=== PATIENT | female | born 1980 | race Caucasian/White ===

== ENCOUNTER 2019-09-13 19:23 | Emergency (ER) | payer MEDICAID, SELFPAY ==
[2019-09-13 19:53] VITALS: BP 154/98; PULSE 98; RESP 17; TEMP 36.7; O2SAT 100; BMI 27.4
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
--- NOTE | 2019-09-13 20:07 | ECG_ITS ---
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 Measurements Intervals [place] Rate: 81 P: 42 HI: 146 QRS: 1 QRSD: 98 T: -4 QT: 345 QTc: 401 Interpretive Statements SINUS RHYTHM Compared to ECG 01/06/2019 23:34:30 No significant changes Electronically Signed On 09-13-2019 20:34:58 CDT by Itzel Mccormick M.D. [id number]
[2019-09-13 20:21] VITALS: BP 121/96; BP 137/94; BP 149/93; PULSE 80; PULSE 93; PULSE 95
[2019-09-13 20:25] LABS: Basophils # 0.1 10^3/uL (0.0-0.1); Eosinophils # 0.1 10^3/uL (0.0-0.8); Eosinophils % 1.6 %; Lymphocytes % 28.7 %; Mean Corpuscular HGB Conc 26.7 g/dL (30.0-36.0); Mean Corpuscular Hemoglobin 19.3 pg (28.0-34.0); Mean Corpuscular Volume 72.3 fL (81-99); Monocytes # 0.4 10^3/uL (0.2-0.9); Monocytes % 5.4 %; Neutrophils # 4.41 10^3/uL (1.8-7.7); Neutrophils % 63.2 %; Nucleated Red Blood Cells % 0 %; Platelet Count 301 10^3/cmm (130-400); Red Blood Count 4.15 10^6/uL (4.1-5.3); Red Cell Distribution Width 18.6 % (12.1-15.1)
--- NOTE | 2019-09-13 20:39 | ED_ITS ---
HPI - General Adult General: Chief complaint: General Medical Stated complaint: doesnt feel good Time Seen by Provider: 09/13/19 19:59 Source: patient Mode of arrival: ambulatory Limitations: no limitations History of Present Illness: HPI narrative: Lizbeth is a 39-year-old female who comes in complaining of fatigue. The patient states that she feels as though she is becoming anemic again. She has an anemia of unknown etiology that causes her to feel this way periodically. She states she has had work-up but the anemia cause cannot be determined. She has been on iron but she states she was taken off it as she was told that she is not truly iron deficient. She has had EGD and colonoscopies but denies any loss of blood in her stool and these tests have been negative. The patient states her last transfusion was just before . Today though she is felt lightheaded, dizzy and had 2 near syncopal episodes. The patient states that she feels tired and fatigued but otherwise has no complaints. She denies fever, chills, chest pain or other issues. Associated symptoms: Reports dyspnea and malaise; Deny chest pain, confusion, diaphoresis, headache(s), nausea, rash, palpitations, syncope or vomiting Review of Systems Const: Reports: fatigue and malaise; Denies: fever(s), chills, body aches or diaphoresis Eyes: Denies: change in vision, blurry vision, blind spots, photophobia, eye discharge or eye redness ENMT: Denies: throat pain, odynophagia, hoarseness, swelling of lips/tongue, oral sores, ear or mastoid pain, ear discharge, change in hearing or nasal discharge Card: Reports: pre-syncope; Denies: chest pain, palpitations, irregular heart rhythm, edema, lightheadedness, syncope, dyspnea on exertion or orthopnea Resp: Reports: dyspnea; Denies: productive cough, non-productive cough, wheezing, hemoptysis or chest congestion GI: Denies: abdominal pain, nausea, vomiting, hematemesis, coffee ground emesis, heartburn, diarrhea, constipation, GI cramping, hematochezia or melena : Denies: flank pain, dysuria, urinary frequency, urinary urgency or hematuria Musc: Denies: neck pain, back pain, extremity pain, extremity swelling, joint pain, joint swelling, joint redness, joint warmth or joint stiffness Skin/Breast: Denies: rash, pruritus, erythema, skin tenderness or jaundice Neuro: Denies: headache(s), numbness in extremities, weakness in extremities, sensory changes, lack of coordination, difficulty walking, dizziness, vertigo, confusion, Slurred speech present or seizure-like activity Bebeto/Lymph: Denies: easy bruising, easy bleeding, petechiae, purpura or enlarged lymph nodes All/Imm: Denies: urticaria, throat swelling, tongue swelling, facial swelling or acute wheezing PFSH ED PFSH: Medical History Anemia Migraines Physical Exam Const: COMMON NORMALS: no acute distress, patient oriented x3, no limitations, healthy appearing and well nourished GENERAL APPEARANCE: cooperative, well kempt and well developed HENMT: COMMON NORMALS: normocephalic, atraumatic, external ears normal, EAC's normal and Normal external nose present HEAD & SCALP: normal to inspection, normocephalic and atraumatic FACE & SINUS: normal facial exam and face symmetric NOSE: Normal external nose present and Normal nares present EXTERNAL EAR: Yes external ears normal EXTERNAL AUDITORY CANAL: EAC's normal MOUTH: Normal oral and palatal mucosa present, lip normal and tongue normal Eye: COMMON NORMALS: Equal, round and reactive pupils present and conjunctivae normal GENERAL EYE: appearance normal, both eyes and all related structures ALIGNMENT: Yes alignment normal PERIORBITAL: periorbital findings normal EYELID: eyelids normal CONJUNCTIVA: Yes conjunctivae normal SCLERA: sclerae normal PUPIL: Yes Equal, round and reactive pupils present Neck/C-Spine: COMMON NORMALS: full ROM, no lymphadenopathy, supple, no meningeal signs and no JVD GENERAL: Yes normal visual inspection and Yes trachea midline Chest: COMMONS NORMALS: normal inspection of the chest and normal palpation of entire chest wall Resp: COMMON NORMALS: normal respiratory effort, No retractions and No use of accessory muscles EFFORT & INSPECTION: Yes able to speak in complete sentences and Yes symmetric chest movement AUSCULTATION: no crackles, no rales, no rhonchi and no wheezes Cardio: COMMON NORMALS: no JVD, regular rate, regular rhythm, S1 normal heart sound present and S2 normal heart sound present RATE: regular rate RHYTHM: regular rhythm HEART SOUNDS: S1 normal heart sound present, S2 normal heart sound present, no click, no gallops, no murmurs, no rubs and abnormal split S2 GI: COMMON NORMALS: Soft to palpation and No hepatosplenomegaly present PALPATION: Yes Soft to palpation, No Tenderness to palpation present (GI), No Guarding due to palpation present (GI), No Rigid due to palpation, Yes No hepatosplenomegaly present, No Hernia present, No Palpable mass present and No Pulsatile mass present : COMMON NORMALS: Yes no CVA tenderness BLADDER/KIDNEY EXAM: Yes no CVA tenderness EXTERNAL FEMALE EXAM: No Hernia present Back/Pelvis: COMMON NORMALS: no CVA tenderness, thoracic and lumbar spine normal to inspection, no thoracic nor lumbar tenderness and thoraco-lumbar ROM normal Extremity: COMMON NORMALS: normal to inspection, full ROM, capillary refill normal, no joint enlargement, no clubbing, cyanosis or edema and no calf tenderness Neuro: COMMON NORMALS: patient oriented x3, CN's II-XII intact bilaterally, moves all extremities, no focal motor deficits and no sensory deficits noted MENINGEAL SIGNS: Yes no meningeal signs SPEECH: speech normal Psych: COMMON NORMALS: mental status grossly normal, Normal thought process present, cooperative, normal affect, speech normal and activity/motor behavior normal APPEARANCE: Yes well kempt SPEECH: Yes normal speech THOUGHT PROCESS: Normal thought process present Skin: COMMON NORMALS: no rashes or lesions noted, turgor normal, no jaundice, no petechiae and no mottling GENERAL SKIN EXAM: no rashes or lesions noted and turgor normal Course Vital Signs: Vital signs: Vital Signs Temperature 98.1 F 09/13/19 19:53 Pulse Rate 78 09/13/19 22:00 Respiratory Rate 17 09/13/19 22:00 Blood Pressure 120/96 09/13/19 22:00 Pulse Oximetry 98 09/13/19 22:00 MDM - General Adult MDM Narrative: Medical decision making narrative: Emerald is a nice 39-year-old female who comes in with fatigue, weakness and near syncope x2. She never did have a complete loss of consciousness. Here she is not orthostatic and did not become lightheaded or dizzy with orthostatics. She is Hemoccult negative. She states that her anemia is been worked up definitively with EGD, colonoscopy but no cause can be determined. It is been quite sometime since she had any work-up for this. She is newly moved here from the area and her doctor is in [place]. She wants to establish with a new doctor here. I did review the whole case with Dr. Mirza who states the patient can get transfused 1 unit of blood as an outpatient and follow-up. I reviewed this with the patient and this is what she was prefer to do. She states this is what she has done numerous times in [place] and is never had to be admitted. She is even had this when she becomes near syncopal. Her EKG shows no evidence of Uteoj-Fvjmuuwdv-Ktxuj syndrome, obstructed AV pathway, Brugada syndrome, left ventricular hypertrophy, Zmwk-Pjzrjk-Ekurte syndrome, epsilon wave, or long or short QT syndrome. Patient is adamant her symptoms are just due to anemia and because she is symptomatic I will go ahead and give her a transfusion of blood. She will transfuse as an outpatient and then follow-up with Dr. Frias. I called Dr. Agudelo and reviewed the case with her and she is agreeable to see the patient this week for recheck. I added other anemia studies such as iron and many other tests to be followed up on. The patient agrees to follow-up with Dr. Agudelo and will call tomorrow. Lab Data: Labs: Lab Results 09/13/19 09/13/19 09/13/19 Range/Units 20:12 20:12 20:12 WBC 7.0 (4.0-10.0) 10^3/ uL RBC 4.15 (4.1-5.3) 10^6/u L Hgb 8.0 L (11.5-15.3) g/dL Hct 30.0 L (37.0-47.0) % MCV 72.3 L (81-99) fL MCH 19.3 L (28.0-34.0) pg MCHC 26.7 L (30.0-36.0) g/dL RDW 18.6 H (12.1-15.1) % Plt Count 301 (130-400) 10^3/c mm MPV Not Reportable Neut % (Auto) 63.2 % Lymph % (Auto) 28.7 % [place] % (Auto) 5.4 % Eos % (Auto) 1.6 % Baso % (Auto) 1.0 % Neut # (Auto) 4.41 (1.8-7.7) 10^3/u L Lymph # (Auto) 2.0 (0.8-4.8) 10^3/u L [place] # (Auto) 0.4 (0.2-0.9) 10^3/u L Eos # (Auto) 0.1 (0.0-0.8) 10^3/u L Baso # (Auto) 0.1 (0.0-0.1) 10^3/u L Nucleated RBC % (a uto) 0 % Nucleated RBCs # 0.0 /100WBC Sodium 138 (136-145) mmol/L Potassium 4.0 (3.5-5.1) mmol/L Chloride 105 (98-107) mmol/L Carbon Dioxide 24 (22-29) mmol/L Anion Gap 13.0 (5-19) BUN 12 (6-20) mg/dL Creatinine 0.8 (0.5-0.9) mg/dL GFR Calculation 79.4 L (90-130) mL/min Glucose 93 (65-115) mg/dL Calculated Osmolal ity 282 L (285-295) mOsm/k g Calcium 10.0 (8.5-10.5) mg/dL Magnesium 2.3 (1.7-2.3) mg/dL Total Bilirubin 0.2 (0.15-1.2) mg/dL AST 17 (0-32) U/L ALT 14 (0-33) U/L Alkaline Phosphata se 82 (35-105) IU/L Troponin T Baselin e (0-10) ng/L Troponin T 120 [place] (0-10) ng/L Total Protein 7.3 (6.6-8.7) g/dL Albumin 4.4 (3.5-5.2) g/dL Globulin 2.9 (1.3-4.6) g/dL TSH 1.22 (0.27-4.20) uIU/ mL Free T4 0.84 (0.82-1.77) ng/d L HCG, Qual (Negative) Urine Color (Yellow) Urine Appearance (CLEAR) Urine pH (5-7) Ur Specific Gravit y (1.005-1.030) Urine Protein (Negative) Urine Glucose (UA) (Normal) Urine Ketones (Negative) Urine Blood (Negative) Urine Nitrate (Negative) Urine Bilirubin (NEGATIVE) Urine Urobilinogen (Negative) mg/dL Ur Leukocyte Nayely ase (Negative) Urine RBC (0-2) /hpf Urine WBC (0-5) /hpf Ur Squamous Epith Cells (0-5) Amorphous Sediment Urine Bacteria (NONE) Blood Type A Positive Rho(D) Type Positive Antibody Screen Negative Crossmatch See Detail 09/13/19 09/13/19 09/13/19 Range/Units 20:12 20:12 20:47 WBC (4.0-10.0) 10^3/ uL RBC (4.1-5.3) 10^6/u L Hgb (11.5-15.3) g/dL Hct (37.0-47.0) % MCV (81-99) fL MCH (28.0-34.0) pg MCHC (30.0-36.0) g/dL RDW (12.1-15.1) % Plt Count (130-400) 10^3/c mm MPV Neut % (Auto) % Lymph % (Auto) % [place] % (Auto) % Eos % (Auto) % Baso % (Auto) % Neut # (Auto) (1.8-7.7) 10^3/u L Lymph # (Auto) (0.8-4.8) 10^3/u L [place] # (Auto) (0.2-0.9) 10^3/u L Eos # (Auto) (0.0-0.8) 10^3/u L Baso # (Auto) (0.0-0.1) 10^3/u L Nucleated RBC % (a uto) % Nucleated RBCs # /100WBC Sodium (136-145) mmol/L Potassium (3.5-5.1) mmol/L Chloride (98-107) mmol/L Carbon Dioxide (22-29) mmol/L Anion Gap (5-19) BUN (6-20) mg/dL Creatinine (0.5-0.9) mg/dL GFR Calculation (90-130) mL/min Glucose (65-115) mg/dL Calculated Osmolal ity (285-295) mOsm/k g Calcium (8.5-10.5) mg/dL Magnesium (1.7-2.3) mg/dL Total Bilirubin (0.15-1.2) mg/dL AST (0-32) U/L ALT (0-33) U/L Alkaline Phosphata se (35-105) IU/L Troponin T Baselin e 6 (0-10) ng/L Troponin T 120 [place] (0-10) ng/L Total Protein (6.6-8.7) g/dL Albumin (3.5-5.2) g/dL Globulin (1.3-4.6) g/dL TSH (0.27-4.20) uIU/ mL Free T4 (0.82-1.77) ng/d L HCG, Qual Negative Negative (Negative) Urine Color (Yellow) Urine Appearance (CLEAR) Urine pH (5-7) Ur Specific Gravit y (1.005-1.030) Urine Protein (Negative) Urine Glucose (UA) (Normal) Urine Ketones (Negative) Urine Blood (Negative) Urine Nitrate (Negative) Urine Bilirubin (NEGATIVE) Urine Urobilinogen (Negative) mg/dL Ur Leukocyte Nayely ase (Negative) Urine RBC (0-2) /hpf Urine WBC (0-5) /hpf Ur Squamous Epith Cells (0-5) Amorphous Sediment Urine Bacteria (NONE) Blood Type Rho(D) Type Antibody Screen Crossmatch 09/13/19 09/13/19 Range/Units 20:47 21:56 WBC (4.0-10.0) 10^3/ uL RBC (4.1-5.3) 10^6/u L Hgb (11.5-15.3) g/dL Hct (37.0-47.0) % MCV (81-99) fL MCH (28.0-34.0) pg MCHC (30.0-36.0) g/dL RDW (12.1-15.1) % Plt Count (130-400) 10^3/c mm MPV Neut % (Auto) % Lymph % (Auto) % [place] % (Auto) % Eos % (Auto) % Baso % (Auto) % Neut # (Auto) (1.8-7.7) 10^3/u L Lymph # (Auto) (0.8-4.8) 10^3/u L [place] # (Auto) (0.2-0.9) 10^3/u L Eos # (Auto) (0.0-0.8) 10^3/u L Baso # (Auto) (0.0-0.1) 10^3/u L Nucleated RBC % (a uto) % Nucleated RBCs # /100WBC Sodium (136-145) mmol/L Potassium (3.5-5.1) mmol/L Chloride (98-107) mmol/L Carbon Dioxide (22-29) mmol/L Anion Gap (5-19) BUN (6-20) mg/dL Creatinine (0.5-0.9) mg/dL GFR Calculation (90-130) mL/min Glucose (65-115) mg/dL Calculated Osmolal ity (285-295) mOsm/k g Calcium (8.5-10.5) mg/dL Magnesium (1.7-2.3) mg/dL Total Bilirubin (0.15-1.2) mg/dL AST (0-32) U/L ALT (0-33) U/L Alkaline Phosphata se (35-105) IU/L Troponin T Baselin e (0-10) ng/L Troponin T 120 [place] 6.00 (0-10) ng/L Total Protein (6.6-8.7) g/dL Albumin (3.5-5.2) g/dL Globulin (1.3-4.6) g/dL TSH (0.27-4.20) uIU/ mL Free T4 (0.82-1.77) ng/d L HCG, Qual (Negative) Urine Color Yellow (Yellow) Urine Appearance Hazy A (CLEAR) Urine pH 5 (5-7) Ur Specific Gravit y 1.025 (1.005-1.030) Urine Protein Neg (Negative) Urine Glucose (UA) Norm (Normal) Urine Ketones Negative (Negative) Urine Blood 3+ H (Negative) Urine Nitrate Negative (Negative) Urine Bilirubin Neg (NEGATIVE) Urine Urobilinogen 1 H (Negative) mg/dL Ur Leukocyte Nayely ase Negative (Negative) Urine RBC 0-4 H (0-2) /hpf Urine WBC None (0-5) /hpf Ur Squamous Epith Cells 5-10 H (0-5) Amorphous Sediment Not Reportable Urine Bacteria 2+ H (NONE) Blood Type Rho(D) Type Antibody Screen Crossmatch EKG Data^: EKG 1: Attestation: I personally reviewed and interpreted this EKG as follows: EKG interpretation date: 09/13/19 EKG interpretation time: 20:18 Interpretation: NSR @ 81, NAD EKG 2: Attestation: I personally reviewed and interpreted this EKG as follows: EKG interpretation date: 09/13/19 EKG interpretation time: 22:21 Interpretation: Normal sinus rhythm at 73 beats a minute, normal axis, no blocks, normal intervals, no acute findings. Unchanged from previous. Discharge Plan Discharge Patient Disposition: Home Clinical Impression: Near syncope Anemia Qualifiers: Anemia type: unspecified type Qualified Code(s): D64.9 - Anemia, unspecified Condition: Stable Discharge Orders: Discharge Order (Routine); Ordered 09/13/19 Ordered By: Gogo Juan Referrals: Bouchra Agudelo MD [Physician] - 1-3 days (I have discussed your case with Dr. Agudelo if you call her tomorrow morning for an appointment he will be seen this week for recheck.) Hiren Kellogg MD [Primary Care Provider] - Discharge Diet: Advance as tolerated Discharge Activity: Limit activity as instructed Patient Instructions: Syncope (ED), Anemia (ED) Activity Restrictions/Additional Instructions: Please return to the ER immediately for any of the signs or symptoms listed on your discharge instruction sheets, worsening/changing of your symptoms, you are not getting better as quickly as expected, or for ANY other cause or concerns. Call for an appointment to be seen by Dr. Agudelo first thing tomorrow morning and you will be seen this week for recheck. If you develop any new symptoms or worsening of your present symptoms return to the ER immediately for recheck. Coding Level of Care Code ED Cloth Mercerizing Supervisor for Chg Fwd Exam Comprehensive
[2019-09-13 20:48] LABS: Troponin(5th) Baseline 6 ng/L (0-10)
[2019-09-13 20:55] LABS: Alanine Aminotransferase 14 U/L (0-33); Albumin Level 4.4 g/dL (3.5-5.2); Alkaline Phosphatase 82 IU/L (35-105); Aspartate Amino Transferase 17 U/L (0-32); Blood Urea Nitrogen 12 mg/dL (6-20); Carbon Dioxide 24 mmol/L (22-29); Chloride 105 mmol/L (98-107); Free T4 Free Thyroxine 0.84 ng/dL (0.82-1.77); Globulin 2.9 g/dL (1.3-4.6); Glomerular Filtration Rate 79.4 mL/min (90-130); Glucose 93 mg/dL (65-115); Magnesium 2.3 mg/dL (1.7-2.3); Osmolality Calculated 282 mOsm/kg (285-295); Sodium 138 mmol/L (136-145); Thyroid Stimulating Hormone 1.22 uIU/mL (0.27-4.20); Total Bilirubin 0.2 mg/dL (0.15-1.2); Total Protein 7.3 g/dL (6.6-8.7)
[2019-09-13 21:10] LABS: Blood Urine 3+ (Negative); Glucose Urine UA Norm (Normal); Ketones Urine Negative (Negative); Protein Urine Neg (Negative); Specific Gravity, Urine 1.025 (1.005-1.030); Urine Appearance Hazy (CLEAR); Urine Color Yellow (Yellow); pH Urine 5 (5-7)
[2019-09-13 21:10] LABS: Slide Review Slide Review Perform
[2019-09-13 21:11] LABS: Bilirubin Urine Neg (NEGATIVE); Leukocyte Esterase Urine Negative (Negative); Nitrate Urine Negative (Negative); Urobilinogen Urine 1 mg/dL (Negative)
[2019-09-13 21:12] LABS: Add Urine Culture? Yes; Bacteria Urine 2+; RBC Urine 0-4 /hpf (0-2)
[2019-09-13 21:38] VITALS: BP 150/97; PULSE 81; RESP 16; O2SAT 97
[2019-09-13 21:44] LABS: HCG Qualitative Urine. Negative (Negative)
[2019-09-13 22:00] VITALS: BP 120/96; PULSE 78; RESP 17; O2SAT 98
--- NOTE | 2019-09-13 22:07 | ECG_ITS ---
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 Measurements Intervals [place] Rate: 73 P: 36 VT: 139 QRS: 19 QRSD: 93 T: 13 QT: 349 QTc: 386 Interpretive Statements SINUS RHYTHM Compared to ECG 09/13/2019 20:18:33 No significant changes Electronically Signed On 09-14-2019 12:56:13 CDT by Kassandra Llamas M.D. [id number]
[2019-09-13 22:11] LABS: HCG, Serum Qual Negative (Negative)
--- NOTE | 2019-09-13 22:24 | PC.NURSE ---
EKG done at 2220 and shown to ER doctor
[2019-09-13 22:25] LABS: Troponin 5 2HR Delta 0 ABS# (0-10)
[2019-09-13 22:46] VITALS: BP 136/78; PULSE 81; RESP 16; O2SAT 100
[2019-09-13 23:16] LABS: Ferritin 6 ng/mL (15-150); Iron 21 ug/dL (37-145); Percent Saturation 5.5 % (20-50); Total Iron Binding Capacity 379 mcg/dl; Unsaturated Iron Binding 358 ug/dL (112-347); Vitamin B12 177 pg/mL (232-1245)
== END 2019-09-13 22:53 | disposition home or self-care (01) ==
PROVIDERS: Emergency Provider Emergency Medicine
DX: R55 Syncope and collapse (principal); D64.9 Anemia, unspecified
CPT/HCPCS: 12345; 36415; 71045; 80053; 81001; 81025; 82607; 82728; 83540; 83550; 83735; 84439; 84443; 84484; 84703; 85025; 86850; 86900; 86920; 87077; 87086; 87186; 93005; 99284

== ENCOUNTER 2019-09-13 23:00 | Day surgery (SDC) | payer MEDICAID, SELFPAY ==
[2019-09-13 23:55] VITALS: BMI 29.7
[2019-09-14 00:46] VITALS: BP 143/85; PULSE 80; RESP 16; TEMP 36.8; O2SAT 100
[2019-09-14 01:01] VITALS: BP 134/87; PULSE 82; RESP 17; TEMP 36.4
[2019-09-14 01:02] VITALS: BP 135/92; PULSE 86; RESP 17; TEMP 36.7
[2019-09-14 01:17] VITALS: BP 113/71; PULSE 72; RESP 17; TEMP 36.8
[2019-09-14 03:41] VITALS: BP 125/83; PULSE 71; RESP 16; TEMP 36.8; O2SAT 100
[2019-09-14 03:42] VITALS: BP 125/83; PULSE 71; RESP 16; TEMP 36.8; O2SAT 100
--- NOTE | 2019-09-14 03:43 | PC.NURSE ---
DISCHARGE Patient was in for blood transfusion. Blood given without any reactions noted. No discharge orders needed. Gave information on blood transfusions.
== END 2019-09-14 03:48 | disposition home or self-care (01) ==
LOC: GILAB 23:14 → MEDSURG 23:14
PROVIDERS: Visit Provider Internal Medicine
DX: D64.9 Anemia, unspecified (principal)
CPT/HCPCS: 36430; 86850; 86900; 86920; P9016

== ENCOUNTER 2020-05-10 18:28 | Outpatient (CLI) | payer MEDICAID, SELFPAY ==
[2020-05-10 19:49] LABS: Basophils # 0.1 10^3/uL (0.0-0.1); Basophils % 1.4 %; Eosinophils # 0.2 10^3/uL (0.0-0.8); Eosinophils % 2.6 %; Hematocrit 28.1 % (37.0-47.0); Hemoglobin 7.2 g/dL (11.5-15.3); Lymphocytes # 2.3 10^3/uL (0.8-4.8); Lymphocytes % 34.9 %; Mean Corpuscular HGB Conc 25.6 g/dL (30.0-36.0); Mean Corpuscular Hemoglobin 18.3 pg (28.0-34.0); Mean Corpuscular Volume 71.3 fL (81-99); Monocytes # 0.5 10^3/uL (0.2-0.9); Neutrophils # 3.55 10^3/uL (1.8-7.7); Neutrophils % 53.9 %; Nucleated Red Blood Cells % 0 %; Platelet Count 228 10^3/cmm (130-400); Red Blood Count 3.94 10^6/uL (4.1-5.3); Red Cell Distribution Width 19.5 % (12.1-15.1); White Blood Count 6.6 10^3/uL (4.0-10.0)
[2020-05-10 19:52] LABS: Add RBC Morph Yes; Anisocytosis 2+; Burr Cells 1+; Hypochromasia 2+; Ovalocytes 1+; Poikilocytosis 2+; RBC Morph Comp No; Slide Review Slide Review Perform; Tear Drop Cells 1+
== END 2020-05-10 18:29 | disposition home or self-care (01) ==
LOC: LAB 18:44
PROVIDERS: Visit Provider Nurse Practitioner Family
DX: D64.9 Anemia, unspecified (principal)
CPT/HCPCS: 85025; 86850; 86900

== ENCOUNTER 2020-05-11 06:56 | Day surgery (SDC) | payer MEDICAID, SELFPAY ==
[2020-05-11] VITALS (65 sets, daily range): BP systolic 99–128; BP diastolic 57–77; PULSE 66–92; RESP 15–16; TEMP 36.7–37.1; O2SAT 97–100; BMI 29.8
[2020-05-11 08:32] LABS: Basophils # 0.1 10^3/uL (0.0-0.1); Basophils % 1.1 %; Eosinophils # 0.2 10^3/uL (0.0-0.8); Eosinophils % 3.4 %; Hematocrit 26.8 % (37.0-47.0); Hemoglobin 6.9 g/dL (11.5-15.3); Lymphocytes # 2.6 10^3/uL (0.8-4.8); Lymphocytes % 40.6 %; Mean Corpuscular HGB Conc 25.7 g/dL (30.0-36.0); Mean Corpuscular Hemoglobin 18.3 pg (28.0-34.0); Mean Corpuscular Volume 70.9 fL (81-99); Monocytes # 0.4 10^3/uL (0.2-0.9); Monocytes % 6.7 %; Neutrophils # 3.11 10^3/uL (1.8-7.7); Nucleated Red Blood Cells % 0 %; Platelet Count 217 10^3/cmm (130-400); Red Blood Count 3.78 10^6/uL (4.1-5.3); Red Cell Distribution Width 19.4 % (12.1-15.1); White Blood Count 6.5 10^3/uL (4.0-10.0)
[2020-05-11] MEDS: sodium chloride 0.9% 100 mL Bag 50 ML IV (08:33)
== END 2020-05-11 12:19 | disposition home or self-care (01) ==
LOC: OPS 06:59 → OBGYN 10:35
PROVIDERS: Visit Provider Nurse Practitioner Family
DX: D64.9 Anemia, unspecified (principal)
CPT/HCPCS: 36430; 85025; 86850; 86900; 86920; P9016

== ENCOUNTER → 2020-06-06 10:43 | Outpatient (BNVA) | payer MEDICAID, SELFPAY | PROVIDERS: Visit Provider Obstetrics & Gynecology | DX: N92.0 Excessive and frequent menstruation with regular cycle (principal); N93.9 Abnormal uterine and vaginal bleeding, unspecified; R10.2 Pelvic and perineal pain; G89.29 Other chronic pain | CPT/HCPCS: 81025; 83001; 84146; 84315; 84443; 85025 ==

== ENCOUNTER → 2020-06-16 15:22 | Outpatient (BNVA) | payer MEDICAID, SELFPAY | PROVIDERS: Visit Provider Obstetrics & Gynecology | DX: N92.0 Excessive and frequent menstruation with regular cycle (principal) | CPT/HCPCS: 76830 ==

== ENCOUNTER 2020-09-06 16:57 | Emergency (ER) | payer MEDICAID, SELFPAY ==
[2020-09-06 18:36] VITALS: BP 164/113; PULSE 82; RESP 16; TEMP 36.4; O2SAT 99; BMI 28.2
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
[2020-09-07] MEDS: ondansetron 4 MG Tablet PO (00:22)
[2020-09-07] MEDS: ketorolac 60 mg/2 mL INJ IM (00:25)
== END 2020-09-07 00:37 | disposition home or self-care (01) ==
PROVIDERS: Emergency Provider Physician Assistant; PCP Nurse Practitioner Family
DX: S06.0X0A Concussion without loss of consciousness, initial encounter (principal); S05.11XA Contusion of eyeball and orbital tissues, right eye, initial encounter; S50.02XA Contusion of left elbow, initial encounter; M54.9 Dorsalgia, unspecified; Y04.2XXA Assault by strike against or bumped into by another person, initial encounter; Y92.89 Other specified places as the place of occurrence of the external cause
CPT/HCPCS: 70450; 70486; 71101; 72125; 73080; 96372; 99283; J1885; Q0162